=== PATIENT | female | born 1975 | race African-American/Black ===

== ENCOUNTER 2025-04-07 15:06 | Emergency (ER) | payer SELFPAY ==
[2025-04-07 15:08] VITALS: BP 226/105; PULSE 83; RESP 16; TEMP 36.6; O2SAT 99; BMI 28.3
--- NOTE | 2025-04-07 15:16 | ED_ITS ---
Discharge Plan Disposition Patient Disposition: Home, Self-Care Condition: Good Prescriptions Prescriptions: New lisinopril 20 mg tablet 20 mg PO DAILY 30 Days Qty: 30 0RF Referrals Follow up/Referrals: Provider,Referral, [Primary Care Provider] - See instructions Activity Restrictions/Add. Instructions Additional Instructions/Restrictions: As we discussed, as best I can tell based off your workup and symptoms, it may be the case that you passed a kidney stone. Given that you are feeling better and have not required additional doses of pain medication, you are stable for discharge at this time. Your blood pressure was high in the emergency department, I prescribed one of your home blood pressure medications. Please follow-up with your primary care doctor and return with any new or worsening symptoms. Clinical Impressions Clinical Impression: Acute flank pain Instructions Patient Instructions: DI for Low Back Pain Print Language Print Language: Setswana Discharge ED Provider: Abraham Armstrong Adult HPI General Chief complaint: Back Pain/Injury Stated complaint: Sent from [facility] Blood In Urine Time Seen by Provider: 04/07/25 15:16 Mode of Arrival: Ambulatory Source of Information: Patient Description of Symptoms (Recalled from ER Triage Doc. by RN): Back pain x24 hours. Ibuprofen with some relief. Patient was seen at [facility] and sent here with blood in urine. Patient doubled over in triage. History of Present Illness HPI narrative: The patient presents with a chief complaint of lower back pain that started yesterday morning. The pain began suddenly and has been progressively worsening, now described as severe. It is primarily located in the middle of her lower back, with some pain experienced on her side yesterday. The pain initially came in waves but is now becoming constant. The patient has a history of kidney stones and reports blood in her urine. She has passed kidney stones 2-3 times in the past, which were managed conservatively with antibiotics and allowed to pass naturally. She also has a history of hypertension, previously managed by a reformatory attendant in [place]. The patient took ibuprofen for pain relief, which provided temporary relief but the effect has worn off after about an hour. Walking seemed to alleviate the pain somewhat during a [place] reunion at the park. The pain is exacerbated by certain positions and is noticeable even while sitting still. She denies experiencing fevers or chills, and mentions that urination is not particularly painful. Prior to coming to the ED, the patient visited urgent care where a urine test was performed. She denies having a yeast infection. The patient recently moved from [place] to [place] and is currently visiting for . She reports not taking her blood pressure medication today and does not have a current prescription in [place]. The patient's review of systems is positive for blood in urine and lower back pain, and negative for fever, chills, and dysuria. Please note that above description of symptoms, in this electronic medical record under categorization of recalled from ER triage doctor by RN are reflective of an initial nursing assessment, however, is not reflective of my full history and physical exam that was personally taken and clarified. Consequentially, this preceding description of symptoms, which may include the patient's categorized chief complaint in the EMR, do not reflect my personal clinical impression, and the ultimate description of history of present illness and patient stated complaints should be deferred to this section of the note. Unless stated otherwise or congruent with this section of the note, additional signs, symptoms, or incongruence should be interpreted as inaccurate with my clinical impression. Related Data Previous Rx's ?Medication ?Instructions ?Recorded lisinopril 20 mg tablet 20 mg PO DAILY 1 month #30 tabs 04/07/25 Allergies Allergy/AdvReac Type Severity Reaction Status Date / Time No Known Allergies Allergy Verified 04/07/25 14:21 [facility] Disclaimer: The information contained in this section may have been updated after the patient was seen, as this information can be updated by other users. Medical History High blood pressure Social History (Updated 04/07/25 @ 15:56 by Shauna Christina APRN) Smoking Status: Never smoker alcohol intake: current alcohol intake frequency: holidays/special occasions only current occupational status: employed Travel in the last 8 weeks?: Inside the [place] Have you lived/traveled outside US in past 30 days?: No Contact w/someone who lives/traveled outside US past 30 days?: No Exposure to someone with infectious disease in past 14 days?: No Do you have a fever (greater than 100.4 F or 38 C)?: No Have you tested positive for COVID-19?: No Exposed to someone with COVID-19 in past 14 days?: No Do you have a sore throat?: No Do you have a cough?: No Do you have any weakness?: No Do you have any diarrhea?: No Are you experiencing any unusual bleeding?: No Do you have any muscle aches/pain?: No Do you have any abdominal pain?: No Are you experiencing loss of taste or smell?: No ROS Obtained: Yes other As per HPI Physical Exam General General appearance: alert and in no apparent distress Head Head exam: atraumatic and normocephalic Eye Eye exam: Present normal appearance Neck Neck exam: Present normal inspection Chest Chest inspection: Present normal inspection and symmetric chest wall rise Respiratory Respiratory exam: Present normal lung sounds bilaterally; Absent respiratory distress Cardiovascular Cardiovascular exam: Present regular rate and normal rhythm Abdominal Exam Abdominal exam: Present soft Neurological Exam Neurological exam: Present alert and oriented X3 Psychiatric Psychiatric exam: Present normal affect and normal mood Skin Skin exam: Present warm and dry Other Other exam information: No point tenderness in lumbar spine. Patient able to ambulate without difficulty, distally neurovascularly intact. Medical Decision Making Medical Records Medical records reviewed: Yes I reviewed the patient's medical records. Screening: Per USPSTF and CDC recommendations, given the prevalence of disease in our region, it is our hospital?s policy to screen for HIV and viral Hepatitis for all patients aged 18 and over and those with ongoing risk factors. Jamin Inquiry Pt receiving controlled substance: No Vital Signs: 04/07/25 15:08 04/07/25 15:56 04/07/25 16:00 Temperature 97.9 F Temperature Source Oral Pulse Rate 75 72 Pulse Rate [Right] 83 Respiratory Rate 16 18 Blood Pressure 192/103 H 189/87 H Blood Pressure [Right Arm] 226/105 H Blood Pressure Mean 121 Blood Pressure Mean [Right Arm] 145 Blood Pressure Source Blood Pressure Position 02 Sat by Pulse Oximetry 99 99 99 Oxygen Delivery Method Room Air 04/07/25 16:30 04/07/25 17:54 Temperature 98.1 F Temperature Source Oral Pulse Rate 74 75 Pulse Rate [Right] Respiratory Rate 18 15 Blood Pressure 173/80 H 165/85 H Blood Pressure [Right Arm] Blood Pressure Mean 111 Blood Pressure Mean [Right Arm] Blood Pressure Source Automatic Cuff Blood Pressure Position Supine 02 Sat by Pulse Oximetry 99 Oxygen Delivery Method Room Air Lab Data Lab Results 04/07/25 15:23: WBC 19.6 H, RBC 4.98, Hgb 14.7, Hct 43.5, MCV 87.3, MCH 29.5, MCHC 33.8, RDW 11.7, Plt Count 388, MPV 10.6 H, Neut % (Auto) 88.1 H, Lymph % (Auto) 7.6 L, [place] % (Auto) 2.4, Eos % (Auto) 1.0, Baso % (Auto) 0.5, Neut # (Auto) 17.2 H, Lymph # (Auto) 1.5, [place] # (Auto) 0.5, Eos # (Auto) 0.2, Baso # (Auto) 0.1, Sodium 137, Potassium 3.8, Chloride 101, Carbon Dioxide 24, Anion Gap 15.8 H, BUN 11, Creatinine 0.80, Estimated Creat Clear 86, Estimated GFR 76, Est GFR ( Amer) 92, Glucose 124 H, Calcium 9.4, Total Bilirubin 0.7, AST 31, ALT 16, Alkaline Phosphatase 75, Total Protein 8.5 H, Albumin 5.2 H, G lobulin 3.3 H, Albumin/Globulin Ratio 1.6, Lipase 117 04/07/25 17:05: Urine Color Yellow, Urine Appearance Clear, Urine pH 6.5, Ur Specific Romance <= 1.005, Urine Protein Negative, Urine Glucose (UA) Negative, Urine Ketones Negative, Urine Blood 2+ A, Urine Nitrate Negative, Urine Bilirubin Negative, Urine Urobilinogen 0.2, Ur Leukocyte Esterase 1+ A, Urine RBC 3-5, Urine WBC 10-20, Ur Squamous Epith Cells 5-10, Urine Bacteria None, Urine Yeast 3+ 04/07/25 15:23 04/07/25 15:23 Orders (Tests/Meds): ED MEDICATIONS Discontinued Medications Generic Name Dose Route Start Last Admin Trade Name Freq PRN Reason Stop Dose Admin Lactated Ringer's 1,000 mls @ 999 mls/hr 04/07/25 15:22 04/07/25 15:30 Lactated Ringer's 1000 Ml Bag IV 04/07/25 16:22 999 mls/hr .Q1H1M ONE Administration Ketorolac Tromethamine 15 mg 04/07/25 15:22 04/07/25 15:30 Ketorolac 30mg/Ml Vial IV 04/07/25 15:23 15 mg ONCE ONE Administration Morphine Sulfate 4 mg 04/07/25 15:22 04/07/25 15:30 Morphine 4mg/Ml Syringe IV 04/07/25 15:23 4 mg ONCE ONE Administration ORDERS Category Date Time Status CT abdomen pelvis wo con Stat Cat Scan 04/07/25 15:22 Completed CBC w/Auto Diff [Complete Blood Count Auto Diff] Stat Lab 04/07/25 15:23 Completed CMP [Comprehensive Metabolic Panel] Stat Lab 04/07/25 15:23 Completed Lipase Stat Lab 04/07/25 15:23 Completed Urinalysis and Microscopic Stat Lab 04/07/25 17:05 Completed Urine Culture Stat Micro 04/07/25 17:05 Completed Medical Decision Narrative: Patient with history and exam per above presenting for evaluation of back pain, flank pain Diagnoses considered include urolithiasis, pyelonephritis, no clinical evidence to warrant further workup beyond history and physical exam for etiologies such as cauda equina syndrome. Patient is overall nontoxic appearing, denies any overt infectious symptoms. ED workup and treatment included: ED MEDICATIONS Discontinued Medications Generic Name Dose Route Start Last Admin Trade Name Freq PRN Reason Stop Dose Admin Lactated Ringer's 1,000 mls @ 999 mls/hr 04/07/25 15:22 04/07/25 15:30 Lactated Ringer's 1000 Ml Bag IV 04/07/25 16:22 999 mls/hr .Q1H1M ONE Administration Ketorolac Tromethamine 15 mg 04/07/25 15:22 04/07/25 15:30 Ketorolac 30mg/Ml Vial IV 04/07/25 15:23 15 mg ONCE ONE Administration Morphine Sulfate 4 mg 04/07/25 15:22 04/07/25 15:30 Morphine 4mg/Ml Syringe IV 04/07/25 15:23 4 mg ONCE ONE Administration ORDERS Category Date Time Status CT abdomen pelvis wo con Stat Cat Scan 04/07/25 15:22 Completed CBC w/Auto Diff [Complete Blood Count Auto Diff] Stat Lab 04/07/25 15:23 Completed CMP [Comprehensive Metabolic Panel] Stat Lab 04/07/25 15:23 Completed Lipase Stat Lab 04/07/25 15:23 Completed Urinalysis and Microscopic Stat Lab 04/07/25 17:05 Completed Urine Culture Stat Micro 04/07/25 17:05 Completed Labs were independently interpreted by me, significant for leukocytosis, hematuria, creatinine within normal limits Imaging was independently visualized and interpreted by me, significant for no acute findings Please refer to radiology report for full details. My clinical impression at this time is most consistent with likely passed kidney stone. Patient after administration of pain medication, multiple hours later, reports continued resolution of symptoms. I discussed my clinical impression with patient and answered all questions. At this time, the evidence for any other entities in the differential is insufficient to warrant any further testing or ED observation. This was explained to the patient. The patient was advised that persistent or worsening symptoms require further evaluation. Critical Care Critical Care Time Critical Care Time: No
--- NOTE | 2025-04-07 15:22 | CT_ITS ---
PROCEDURE INFORMATION: Exam: CT Abdomen And Pelvis Without Contrast Exam date and time: 04/07/2025 3:38 PM Age: 49 years old Clinical indication: Abdominal pain; Additional info: Flank pain, HX urolithiasis TECHNIQUE: Imaging protocol: Computed tomography of the abdomen and pelvis without contrast. Radiation optimization: All CT scans at this facility use at least one of these dose optimization techniques: automated exposure control; mA and/or kV adjustment per patient size (includes targeted exams where dose is matched to clinical indication); or iterative reconstruction. COMPARISON: No relevant prior studies available. FINDINGS: Lungs: Lung bases are clear. Liver: Subcentimeter low-density lesion in the anterior left lobe of liver on image 32 of series 3 too small to characterize but likely a cyst. Liver otherwise unremarkable. Gallbladder and biliary ducts: Normal. No calcified stones. No ductal dilation. Pancreas: Normal. No ductal dilation. Spleen: Normal. No splenomegaly. Adrenal glands: Normal. No mass. Kidneys and ureters: Normal. No hydronephrosis. Stomach and bowel: Distal colon resection with reanastomosis in the pelvis. GI tract structures otherwise unremarkable with no evident wall thickening allowing for incomplete distention. Appendix: A prominent tubular structure noted in the right lower quadrant adjacent to the tip of the cecum thought to represent prominent appendix with the tip of this structure measuring up to 10 mm centered on axial image 73 of series 3. No surrounding inflammatory change. Intraperitoneal space: Unremarkable. No free air. No significant fluid collection. Vasculature: Unremarkable. No abdominal aortic aneurysm. Lymph nodes: Unremarkable. No enlarged lymph nodes. Urinary bladder: Unremarkable as visualized. Reproductive: A 2.1 cm complex inhomogeneous low-density lesion noted in the residual left ovary with a density of 23. Hysterectomy. Bones/joints: Unremarkable. No acute fracture. Soft tissues: Unremarkable. IMPRESSION: 1. Prominent appendix measuring up to 10 mm in the distal portion without associated inflammatory change. This may be a normal variation but the possibility of early acute appendicitis or other appendiceal process can not be totally excluded. Advise clinical assessment and follow-up. If low clinical suspicion and if no clinical findings referable to this region as a precaution advise a 2-3 month follow-up CT to ensure stability of this finding. 2. Incidental 2.1 cm complex cystic lesion left ovary may be a complex hemorrhagic cyst. Advise further assessment with nonemergent ultrasound of the pelvis.
[2025-04-07] MEDS: KETOROLAC 30MG/ML VIAL 15 MG IV (15:30)
[2025-04-07] MEDS: MORPHINE 4MG/ML SYRINGE 4 MG IV (15:30)
[2025-04-07] MEDS: LACTATED RINGERS 1000ML 1,000 ML 999 ML IV (15:30)
[2025-04-07 15:56] VITALS: BP 192/103; PULSE 75; O2SAT 99
[2025-04-07 16:00] VITALS: BP 189/87; PULSE 72; RESP 18; O2SAT 99
[2025-04-07 16:16] LABS: Basophils # 0.1 K/mm3 (0-0.2); Basophils % 0.5 % (0.1-2.0); Eosinophils # 0.2 Kmm3 (0.0-0.4); Hematocrit 43.5 % (37.0-47.0); Hemoglobin 14.7 g/dL (12.2-16.2); Immature Granulocytes # 0.08 10^3uL; Immature Granulocytes % 0.4 %; Lymphocytes # 1.5 K/mm3 (0.7-4.5); Lymphocytes % 7.6 % (10-50); Mean Corpuscular HGB Conc 33.8 g/dL (31.8-35.4); Mean Corpuscular Hemoglobin 29.5 pg (27.0-31.2); Mean Corpuscular Volume 87.3 fl (81-99); Mean Platelet Volume 10.6 fl (7.4-10.4); Monocytes # 0.5 K/mm3 (0.1-1.0); Monocytes % 2.4 % (1.7-9.3); Neutrophils # 17.2 K/mm3 (1.8-7.8); Neutrophils % 88.1 % (37.0-80.0); Nucleated Red Blood Cells # 0 10^3/uL; Nucleated Red Blood Cells % 0 %; Platelet Count 388 K/mm3 (142-424); Red Blood Count 4.98 M/mm3 (4.20-5.40); Red Cell Distribution Width 11.7 % (11.5-17.5); Red Cell Distribution Width-SD 37.4 fL; White Blood Count 19.6 K/mm3 (4.8-10.8)
[2025-04-07 16:30] VITALS: BP 173/80; PULSE 74; RESP 18; O2SAT 99
[2025-04-07 16:38] LABS: Lipase 117 U/L (23-300)
[2025-04-07 16:40] LABS: Alanine Aminotransferase 16 U/L (12-78); Albumin Level 5.2 g/dl (3.5-5.0); Albumin/Globulin Ratio 1.6 (1.1-1.8); Alkaline Phosphatase 75 U/L (38-126); Anion Gap 15.8 mEq/L (5-15); Aspartate Amino Transferase 31 U/L (14-36); Bilirubin,Total 0.7 mg/dl (0.2-1.3); Blood Urea Nitrogen 11 mg/dl (7-17); Calcium 9.4 mg/dl (8.4-10.2); Carbon Dioxide 24 mmol/L (22.0-30.0); Chloride 101 mmol/L (98-107); Creatinine Clearance Estimated 86 mL/min (50-200); Estimated Glomerular Filt Rate 76 ml/min (>60); GFR (African American) 92 ML/MIN (>60); Globulin 3.3 g/dL (1.3-3.2); Glucose 124 mg/dl (74-100); Potassium 3.8 mmoL/L (3.5-5.1); Sodium 137 mmol/L (136-145); Total Protein,Serum 8.5 g/dl (6.3-8.2)
[2025-04-07 17:11] LABS: Microscopic, Urine URINE MICROSCOPIC (MICROSCOPIC)
[2025-04-07 17:12] LABS: Appearance,Urine CLEAR (Clear); Bilirubin,Urine Negative (Negative); Blood, Urine 2+ (Negative); Color,Urine YELLOW (Yellow); Glucose,Urine (UA) Negative (Negative); Ketones,Urine Negative (Negative); Leukocyte Esterase,Urine 1+ (Negative); Nitrate,Urine Negative (Negative); PH,Urine 6.5 (5.0-8.5); Protein,Urine Negative (Negative); Specific Gravity, Urine <= 1.005 (1.005-1.030); Urobilinogen,Urine 0.2 EU/dl (0.2)
[2025-04-07 17:27] LABS: Yeast,Urine 3+ /lpf
[2025-04-07 17:54] VITALS: BP 165/85; PULSE 75; RESP 15; TEMP 36.7; O2SAT 99
== END 2025-04-07 17:54 | disposition home or self-care (01) ==
PROVIDERS: Emergency Provider Emergency Medicine
DX: R10.30 Lower abdominal pain, unspecified (principal); M54.59 Other low back pain; R31.9 Hematuria, unspecified; Z87.442 Personal history of urinary calculi
CPT/HCPCS: 74176; 80053; 81001; 83690; 85025; 87086; 96361; 96374; 96375; 99285; J1885; J2270; J7120